=== PATIENT | female | born 1965 ===

== ENCOUNTER 2023-08-27 05:12 | Day surgery (SDC) | payer OTHER ==
[2023-08-20 09:32] LABS: HEMATOCRIT 37.6 % (36.0-45.00); HEMOGLOBIN 12.8 g/dL (12.0-15.00); MEAN CELL VOLUME 84.9 fL (80.00-100.00); MEAN CORPUSCULAR HEMOGLOBIN 28.8 pg (27.00-32.0); MEAN CORPUSCULAR HGB CONC 33.9 g/dl (32.0-36.0); PLATELET COUNT 226 K/uL (150-450); RED BLOOD COUNT 4.43 M/uL (4.00-6.00); RED CELL DISTRIBUTION WIDTH 15.3 % (11.5-14.5)
[2023-08-20 09:53] LABS: INR 0.95; PARTIAL THROMBOPLASTIN TIME 27.9 SECONDS (22.0-34.0)
[2023-08-20 10:07] LABS: PH,URINE 7.5 (5.0-8.0); URINE APPEARANCE Clear; URINE BILIRRUBIN Negative (NEGATIVE); URINE BLOOD Negative; URINE COLOR Yellow; URINE GLUCOSE Negative (NEGATIVE); URINE LEUKOCYTE Negative; URINE NITRATE Negative; URINE PROTEIN Negative (NEGATIVE)
[2023-08-20 10:09] LABS: ALBUMIN 3.7 gm/dL (3.4-5.0); BILIRUBIN TOTAL 0.52 mg/dL (0.3-1.2); CALCIUM 9.1 mg/dL (8.5-10.1); CREATININE SERUM 0.66 mg/dL (0.55-1.02); GFR 91.66; POTASSIUM 3.74 mEq/L (3.5-5.1); TOTAL PROTEIN 7.7 gm/dL (6.4-8.2)
[2023-08-20 10:12] LABS: URINE BACTERIA 1673.1 uL (0.0-1933); URINE EPITHELIAL CELLS 55.3 uL (0.0-38.8); URINE RBC 2.1 uL (0.0-20.8); URINE WBC 22.4 uL (0.0-23.2)
[~2023-08-27 05:12] MED LIST: HYZAAR 100-251 EACH; METROPOLOL; PROTONIX
[2023-08-27] MEDS ORDERED: LIDOCAINE HCL/EPINEPHRINE 10MG/ML 1% 50ML IJ ONE ×2 (07:21→08:30)
[2023-08-27] MEDS ORDERED: BUPIVACAINE HCL/PF 0.5% 30ML ML ONE (07:21)
[2023-08-27] MEDS ORDERED: CEFAZOLIN SODIUM 1,000 MG VIAL ONE (07:21)
[2023-08-27] MEDS ORDERED: BUPIVACAINE HCL 30 ML VIAL IJ ONE (08:30)
[2023-08-27] MEDS ORDERED: CEFAZOLIN SODIUM 1,000 MG VIAL IV SCH (08:30)
== END 2023-08-27 12:05 | disposition home or self-care (01) ==
LOC: CIR.AMB 05:12
PROVIDERS: ATTEND Surgery
DX: K80.20 Calculus of gallbladder without cholecystitis without obstruction (principal); I10 Essential (primary) hypertension; E66.9 Obesity, unspecified